=== PATIENT | female | born 1985 | race Caucasian/White ===

== ENCOUNTER 2017-05-05 15:30 | Emergency (ER) | payer SELFPAY ==
[2017-05-05 16:24] VITALS: BP 111/71
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
--- NOTE | 2017-05-05 17:25 | RAD ---
INDICATION: Left shoulder injury. TECHNIQUE: 4 views of the left shoulder were obtained. FINDINGS: The bones are in normal alignment. No fracture is seen. Joint spaces appear maintained. IMPRESSION: NO EVIDENCE OF FRACTURE.
== END 2017-05-05 17:47 | disposition home or self-care (01) ==
LOC: UCCORT 15:30
DX: S13.4XXA Sprain of ligaments of cervical spine, initial encounter (principal); S40.012A Contusion of left shoulder, initial encounter; V43.52XA Car driver injured in collision with other type car in traffic accident, initial encounter; Y93.89 Activity, other specified; Y92.410 Unspecified street and highway as the place of occurrence of the external cause; M25.512 Pain in left shoulder; R51 Headache; Z88.2 Allergy status to sulfonamides
CPT/HCPCS: 99212; G0463

== ENCOUNTER 2018-09-12 07:55 | Emergency (ER) | payer OTHER ==
[2018-09-12 08:28] VITALS: BP 116/84
--- NOTE | 2018-09-12 09:54 | UC ---
Ear Complaint HPI - HPI Summary HPI Summary: 33 year old female with ear concern. Intermittent pain and "clogged" feeling in left ear for over a year. Pain steadily worsening over the last three weeks. "Popping" sensation worsening since applying essential oils yesterday. Difficulty sleeping last night due to pain. Patient swims a couple times a week. [ End ] - History of Current Complaint Chief Complaint: UCEar Stated Complaint: EAR PAIN Time Seen by Provider: 09/12/18 09:44 Hx Obtained From: Patient Hx Last Menstrual Period: Mirena IUD Onset/Duration: Gradual Onset Pain Intensity: 1 - Allergies/Home Medications Allergies/Adverse Reactions: Allergies Allergy/AdvReac Type Severity Reaction Status Date / Time Sulfa (Sulfonamide Allergy Hives Verified 09/12/18 08:20 Antibiotics) soy AdvReac Oral Verified 09/12/18 08:20 Sores, GI Upset, Rash wheat AdvReac Oral Verified 09/12/18 08:20 Sores, GI Upset, Rash Home Medications: Home Medications Labetalol TAB* [Trandate TAB*] 100 mg PO BID 09/12/18 [History Confirmed ] PMH/Surg Hx/FS Hx/Imm Hx Previously Healthy: Yes Other History Of: Negative For: HIV, Hepatitis B, Hepatitis C, Anticoagulant Therapy - Surgical History Surgical History: Yes Surgery Procedure, Year, and Place: adenoids, breast reduction - Family History Known Family History: Positive: Hypertension, Other - Polycystic kidney disease- -mother. Negative: Cardiac Disease, Diabetes - Social History Occupation: Employed Full-time Lives: With Family Alcohol Use: Occasionally Substance Use Type: None Smoking Status (MU): Never Smoked Tobacco Review of Systems ENT: Ear Ache Is Patient Immunocompromised?: No All Other Systems Reviewed And Are Negative: Yes Physical Exam Triage Information Reviewed: Yes Appearance: Well-Appearing, No Pain Distress, Well-Nourished Vital Signs: Initial Vital Signs Temp 98.1 F 09/12/18 08:18 Pulse 80 09/12/18 08:18 Resp 16 09/12/18 08:18 BP 116/84 09/12/18 08:18 Pulse Ox 98 09/12/18 08:18 Vital Signs Reviewed: Yes Eye Exam: Normal ENT Exam: Normal ENT: Positive: Hearing grossly normal, Nasal congestion, Nasal drainage, TM bulging, TM dull, TM red - left Dental Exam: Normal Neck exam: Normal Neck: Positive: 1 Respiratory Exam: Normal Cardiovascular Exam: Normal Abdominal Exam: Normal Musculoskeletal Exam: Normal Neurological Exam: Normal Psychological Exam: Normal Skin Exam: Normal Ear Complaint Course/Dx - Differential Dx/Diagnosis Differential Diagnosis/HQI/PQRI: Cerumen Impaction, Otitis Externa, Otitis Media , Perforated TM, URI Provider Diagnoses: Left AOM Discharge - Sign-Out/Discharge Documenting (check all that apply): Patient Departure All imaging exams completed and their final reports reviewed: No Studies - Discharge Plan Condition: Good Disposition: HOME Prescriptions: Amoxicillin PO (*) [Amoxicillin 875 MG (*)] 875 mg PO BID #20 tab Patient Education Materials: Ear Infection (ED) Referrals: Temi Bloom MD [Primary Care Provider] - 4 Days Additional Instructions: As we discussed please consider following up with an ear nose and throat physician if your symptoms persist. Please continue with daily Flonase and consider a daily antihistamine similar to Claritin. - Billing Disposition and Condition Condition: GOOD Disposition: Home
== END 2018-09-12 10:15 | disposition home or self-care (01) ==
LOC: UCCORT 07:55
DX: H66.92 Otitis media, unspecified, left ear (principal); Z88.1 Allergy status to other antibiotic agents
CPT/HCPCS: 99212; G0463

== ENCOUNTER 2019-10-04 08:03 | Inpatient (IN) | payer OTHER ==
[2019-10-04] MEDS ORDERED: Misoprostol TAB* 100 MCG ONE (09:27)
[2019-10-04] MEDS ORDERED: Buffered Lidocaine 1% SYRIN* 1 ML/SYRINGE INTRADERM ONE (09:28)
[2019-10-04] MEDS ORDERED: Lactated Ringers 1000 ML Bag* 1,000 ML IV ONE (09:28)
[2019-10-04] MEDS ORDERED: Misoprostol TAB* 100 MCG VAGINAL ONE (09:28)
--- NOTE | 2019-10-04 09:45 | HP ---
General Information - Reason for Visit Pt presents at 39 wks for labor induction due to complicated by CHTN and AMA. Pt also with morbid obesity. She has been on Labetalol 300mg BID and low dose ASA for the entire . Pt also with polycystic kidney disease, but normal labs. - General Information Maternal Age: 34 Grav: 1 Para: 0 SAB: 0 IEA: 0 Estimated Due Date: 10/10/19 Determined By: LMP Gestational Age in Weeks/Days: 39+! Maternal Blood Type and Rh: O Positive - Results this Serology/RPR Result: Non-Reactive Rubella Result: Immune HBsAg Result: Negative HIV Result: Negative GBS Culture Result: Positive Past Medical History Delivery History: See Records Pertinent Past Medical History: See Records Past Medical History Comment: Polycystic kidney disease, chronic HTN, morbid obesity, depression/anxiety Pertinent Past Surgical History: See Records Past Surgical History Comment: breast reduction - Antepartal Records Antepartal Records: Reviewed, Complicated by: - see above Review of Systems Constitutional: Comfortable CV Complaint: No Respiratory: Shortness of Breath: No Gastrointestinal: No Nausea/Vomiting, Normal Bowel Movement Genitourinary: No Dysuria, No Bleeding, No Leaking Fluid Musculoskeletal: No Complaint Neurological: No Headache Movement: Normal Exam Allergies/Adverse Reactions: Allergies Sulfa (Sulfonamide Antibiotics) Allergy (Intermediate, Verified 10/04/19 08:45) Hives soy Adverse Reaction (Mild, Verified 10/04/19 08:45) Oral Sores, GI Upset, Rash wheat Adverse Reaction (Mild, Verified 10/04/19 08:45) GI Upset 130/71, HR 91, RR 20, T 97.7 - Measurements Height: 5 ft 1 in Weight: 250 lb Body Mass Index (BMI): 47.2 Pre- Weight: 234 lb - Exam Breast: Breast Exam Deferred Heart: Normal Rhythm/Heart Sounds HEENT: No Significant Findings Lungs: Clear Bilaterally Rectal: Rectal Exam Deferred - Abdominal Exam Abdomen Exam: Non-Tender - Ultrasound/Biophysical Profile Ultrasound Status: Not Done Targeted Exam Findings Cervical Exam: 1cm Effacement: <50% Station: -2 Presenting Part: Vertex Membrane Status: Intact Bleeding/Discharge: None EFM Findings - External Monitor Findings Baseline Heart Rate: 130 External Monitor Findings: Accelerations Present, No Pattern of Variable or Late Decelerations, Variability Moderate, Baseline Stable Contractions: None Assessment/Plan - Assessment 39+1 wks with CHTN, PKD, morbid obesity, here for labor induction today. Very reassuring testing. Discussed labor induction at length, and considering unfavorable cervix, will start with vaginal misoprostol. Pt understands induction may take at least 1-2 days. - Obstetrical Risk Factors Obstetrical Risk Factors: GBS Positive, Obesity, Chronic Hypertension - Plan Plan: Cervical Ripening - misprostol 25mcg placed at about 0930 - Date/Time of Admission Date of Admission: 10/04/19 Time of Admission: 09:00
[2019-10-04 14:57] LABS: Urine Benzodiazepine Screen None Detected (None Detect); Urine Opiates Screen None Detected (None Detect)
[2019-10-04 16:15] LABS: ABS Eosinophils 0.1 10^3/ul (0-0.6); ABS Lymphocytes 1.6 10^3/ul (1.0-4.8); ABS Monocytes 0.6 10^3/ul (0-0.8); ABS Neutrophils 6.8 10^3/ul (1.5-7.7); Eosinophil % 0.6 %; Hematocrit 38 % (35-47); Hemoglobin 13.3 g/dL (12.0-16.0); Lymphocyte % 17.2 %; Mean Corpuscular HGB Conc 35 g/dL (31-36); Mean Corpuscular Hemoglobin 29 pg (27-31); Mean Corpuscular Volume 84 fL (80-97); Mean Platelet Volume 9.2 fL (7.4-10.4); Platelet Count 175 10^3/uL (150-450); Red Blood Count 4.51 10^6 /uL (3.70-4.87); Red Cell Distribution Width 13 % (10-15)
[2019-10-04 16:27] LABS: Albumin 3.7 g/dL (3.2-5.2); Calcium 9.7 mg/dL (8.6-10.3); Potassium 4.1 mmol/L (3.5-5.0); Total Bilirubin 0.4 mg/dL (0.2-1.0)
[2019-10-04 16:33] LABS: Albumin/Globulin Ratio 1.5 (1-3); BUN/Creatinine Ratio 15.6 (8-20); EGFR African American 103.2 (>60); EGFR Non-African American 85.3 (>60); Globulin 2.4 g/dL (2-4); Total Protein 6.1 g/dL (6.4-8.9); Uric Acid 4.8 mg/dL (2.3-6.6)
[2019-10-04] MEDS ORDERED: Nalbuphine* 10 MG/ML 1 ML VIAL IV PRN (17:36)
[2019-10-04] MEDS ORDERED: Promethazine INJ(RESTRICTED)* 25 MG/ML 1 ML VIAL IV PRN (17:36)
[2019-10-04] MEDS ORDERED: Penicillin G Potassium IV* 5,000,000 UNITS in NS 0.9% 100 ML* 100 ML IVPB ONE (17:36)
[2019-10-04] MEDS: Labetalol TAB* 300 MG PO SCH (20:29)
[2019-10-05] MEDS: Lactated Ringers 1000 ML Bag* 1,000 ML IV SCH ×2 (08:25→20:40)
[2019-10-05] MEDS: Labetalol TAB* 300 MG PO SCH ×2 (08:26→21:00)
[2019-10-05] MEDS: Oxytocin in LR* 20 UNITS/1,000 ML BAG IVPB SCH (08:55)
--- NOTE | 2019-10-05 09:39 | PN ---
Progress Note - Progress Note Date of Service: 10/05/19 Note: S: Feeling ok, "a little nervous" this morning. Slept fairly well overnight. Had small breakfast. Not really feeling mild ctx. O: VE deferred Pit @ 4 UCs q 5-7 FHT 135, +accels, no decels, mod obdulia VSS: T 97.4, BP 119/85 PCN prophylaxis initiated A: IUP @ 39+2 weeks gestation for induction of labor for CHTN, PKD No evidence acidemia GBS + Not in labor P: Continue pitocin titration. Discussed use of nitrous oxide for labor pain management if desired. Patient hoping to avoid epidural. May consider hydrotherapy as well. Encouraged upright positions and moving. Anticipate SVB.
[2019-10-05] MEDS: Penicillin G Potassium IV* 2,500,000 UNITS in NS 0.9% 100 ML* 100 ML IVPB SCH ×3 (12:34→20:44)
[2019-10-05] MEDS ORDERED: Famotidine IV* 10 MG/ML 2 ML (20 mg) IV SLOW PU ONE (15:55)
--- NOTE | 2019-10-05 18:24 | PN ---
Progress Note - Progress Note Date of Service: 10/05/19 Note: S: In good spirits. Feeling contractions are strengthening, feels more full belly and lower down, less like cramps. Coping well. O: VSS Pitocin @14mu 4cm/vtx/80% Ctx 3-5min FHTs 135 baseline A: , 39 4-7 weeks IOL secondary to CHTN, PKD Early labor AROM, fluid clear P: Encourage use of tub, position changes Continue to titrate pitocin Continue to monitor
[2019-10-05] MEDS ORDERED: OBEPIDURAL* 250 ML EPIDURAL ONE (19:34)
[2019-10-06] MEDS: Penicillin G Potassium IV* 2,500,000 UNITS in NS 0.9% 100 ML* 100 ML IVPB SCH ×4 (00:30→12:35)
[2019-10-06] MEDS ORDERED: Lidocaine 2% w/ EPI 1:200,000* 20 ML SDV VIAL ONE (02:39)
--- NOTE | 2019-10-06 03:00 | PN ---
Progress Note - Progress Note Date of Service: 10/06/19 Note: S: Patient started gradually feeling more pressure in low and front pelvis, increased to pain with each contraction. Has tried individual bolus button without relief. O: VE by RN @ 0138 6-7cm, exam 8cm/95%/0 Pit @ 14 UCs q 2-3 FHT 130, BPs 150s/80s evening labetolol dose held A: IUP @ 39+3 for induction for HTN epidural catheter pulled out with position changes P: Dr Reagan paged to unit and will replace with repeat epidural procedure. Pit down to 6.
[2019-10-06] MEDS ORDERED: OBEPIDURAL* 250 ML EPIDURAL ONE (03:27)
[2019-10-06] MEDS ORDERED: Sodium Citrate/Citric Acid* 15 ML UDC PO PRN (04:05)
[2019-10-06] MEDS ORDERED: Famotidine TAB* 20 MG PO PRN (04:05)
[2019-10-06] MEDS ORDERED: Lactated Ringers 1000 ML Bag* 500 ML IV PRN ×2 (04:05)
[2019-10-06] MEDS ORDERED: Lactated Ringers 1000 ML Bag* 1,000 ML IV ONE (04:05)
[2019-10-06] MEDS ORDERED: Phenylephrine 40 MCG/ML SYRINGE IV PUSH PRN ×2 (04:05)
[2019-10-06] MEDS: Lactated Ringers 1000 ML Bag* 1,000 ML IV SCH ×2 (04:25→13:15)
[2019-10-06] MEDS ORDERED: Lactated Ringers 1000 ML Bag* 1,000 ML IV SCH ×3 (05:00→23:45)
[2019-10-06] MEDS ORDERED: OBEPIDURAL* 250 ML EPIDURAL SCH (05:00)
[2019-10-06] MEDS: Labetalol TAB* 300 MG PO SCH ×2 (08:30→21:05)
[2019-10-06] MEDS: Oxytocin in LR* 20 UNITS/1,000 ML BAG IVPB SCH (10:22)
[2019-10-06] MEDS: Ketorolac INJ* 30 MG/ML 1 ML VIAL IV SCH ×2 (13:00→22:54)
[2019-10-06] MEDS ORDERED: ceFOXitin 2 GM IVPREMIX* 2 GM/50 ML BAG ONE (13:55)
[2019-10-06] MEDS ORDERED: ceFOXitin 2 GM IVPREMIX* 2 GM/50 ML BAG IVPB ONE (13:55)
[2019-10-06] MEDS ORDERED: Morphine PF AMP (0.5MG/ML)* 5 MG/10 ML AMP ONE (14:01)
[2019-10-06] MEDS ORDERED: fentaNYL* 50 MCG/ML 2 ML VIAL (100 MCG VIAL) ONE (14:47)
[2019-10-06] MEDS ORDERED: KETAMINE HCL* 50 MG/ML 10 ML VIAL ONE (14:47)
[2019-10-06] MEDS ORDERED: Dexamethasone IV* 4 MG/ML 1 ML (4 MG) ONE (14:52)
[2019-10-06] MEDS ORDERED: Ondansetron INJ* 2 MG/ML VIAL ONE (14:52)
[2019-10-06] MEDS ORDERED: oxyCODONE TAB* 5 MG TAB PO PRN ×2 (15:06→15:16)
[2019-10-06] MEDS ORDERED: PROCHLORPERAZINE INJ 5 MG/ML 2 ML VIAL IV PRN ×2 (15:06→15:16)
[2019-10-06] MEDS ORDERED: Acetaminophen IV 1GM/100ML * 1,000 MG/100 ML VIAL IVPB ONE (15:06)
[2019-10-06] MEDS ORDERED: DiMENhydriNATE IV* 50 MG/ML VIAL IV PUSH PRN (15:06)
[2019-10-06] MEDS ORDERED: Scopolamine 1.5 mg* PATCH TRANSDERM PRN ×2 (15:06→15:16)
[2019-10-06] MEDS ORDERED: fentaNYL* 50 MCG/ML 2 ML VIAL (100 MCG VIAL) IV PRN (15:06)
[2019-10-06] MEDS ORDERED: Ketorolac INJ* 30 MG/ML 1 ML VIAL IV PRN (15:06)
[2019-10-06] MEDS ORDERED: Naloxone* 0.4 MG/ML 1 ML VIAL IV PRN ×2 (15:06→15:16)
[2019-10-06] MEDS ORDERED: Nalbuphine* 10 MG/ML 1 ML VIAL IV PRN (15:16)
[2019-10-06] MEDS ORDERED: Ondansetron INJ* 2 MG/ML VIAL IV PRN (15:16)
[2019-10-06] MEDS ORDERED: Acetaminophen TAB* 325 MG PO SCH (16:00)
--- NOTE | 2019-10-06 22:31 | OP ---
DATE OF SURGERY: 10/06/19 - ROOM #115 DATE OF : 83 SURGEON: Eli Whitehead MD. BALANCE WHEEL MOTION INSPECTOR: Arielle Lopez CNM. ANESTHESIOLOGIST: Dr. Mcmahon. ANESTHESIA: Spinal. CEPHALOMETRIC TRACER: Leonid Collazo MD. PRE-OP DIAGNOSES: Maternal exhaustion, intrauterine , 39 and 3/7 weeks , chronic hypertension. POST-OP DIAGNOSES: Maternal exhaustion, intrauterine , 39 and 3/7 weeks, chronic hypertension. OPERATIVE PROCEDURE: Primary low-transverse section. ESTIMATED BLOOD LOSS: 600 cc. URINE OUTPUT: 100 cc of concentrated yellow urine. FLUIDS: 2700 cc of crystalloid. FINDINGS: Revealed a vertex male with Apgars 9 at 1 minute and 9 at 5 minutes, weight was 7 pounds 7 ounces. Placenta was manually extracted, 3- vessel cord intact. No meconium. Nuchal cord x2. Normal appearing tubes and ovaries bilaterally. COMPLICATIONS: None apparent. DISPOSITION: Stable, to recovery room. DESCRIPTION OF PROCEDURE: The patient was placed in dorsal lithotomy position. The abdomen was prepped and draped in a sterile standard fashion. The patient was identified with universal protocol for correct procedure, position, and patient. Anesthesia was then tested to appropriate level. Incision was made 2 fingerbreadths above the pubic symphysis. This was carried down through the fascia. Fascia was scored in the midline, extended laterally and superiorly using Oliva scissors. The fascia was superiorly and inferiorly with blunt and sharp dissection. The peritoneum was then entered bluntly and the incision was extended bluntly. Bladder blade was inserted. Lower uterine segment was identified, tented up with an Allis. Incision was made. This was carried down through membrane. Amniotomy was created for clear fluid. The incision was extended laterally and superiorly using bandage scissors. The infant was delivered vertex, JULIUS, anterior then posterior shoulder delivered. After reduction of the nuchal cord x2, the baby was vigorous and was allowed to stay on the operative field for a minute and then the cord was clamped and cut, and the was handed off to awaiting brush machine setter. Appropriate cord blood was then obtained. The placenta was then manually extracted, noted to be intact. The uterine cavity was explored and noted to be free of any membranes or placental tissue. The uterus was exteriorized, wrapped in warm, moist laparotomy sponge, and the incision itself was reapproximated in 2 layers. First layer running locked, second layer running imbricated. Uterus was returned intraabdominally. Gutters were lavaged. Hemostasis was assured at the hysterotomy site. The peritoneum was then reapproximated using 3-0 Vicryl in a running fashion. Subfascial area was visualized. Hemostasis assured and the fascia itself was reapproximated using 0 Vicryl x2 in a running fashion. Camper 's fascia was lavaged. Hemostasis assured with Bovie coagulation and Camper's fascia was reapproximated using 3-0 Vicryl in an interrupted fashion. The skin was then reapproximated using 4-0 Monocryl in a subcuticular fashion. Mastisol and Steris were applied. All sponge, needle, instrument, blade counts were correct throughout the case. The patient tolerated the procedure well, and went to the recovery room in stable condition. [id number]/[facility] #: [id number] BARBARA
[2019-10-06] MEDS ORDERED: Oxytocin in LR* 20 UNITS/1,000 ML BAG IVPB SCH (23:45)
[2019-10-06] MEDS ORDERED: Dibucaine 1% 28.35 GM TUBE PR PRN (23:55)
[2019-10-06] MEDS ORDERED: Witch Hazel PAD* JAR TOPICAL PRN (23:55)
[2019-10-06] MEDS ORDERED: Glycerin ADULT SUPP PR PRN (23:55)
[2019-10-07] MEDS: Acetaminophen TAB* 325 MG PO SCH ×2 (00:18→08:08)
[2019-10-07 05:39] LABS: ABS Lymphocytes 1.1 10^3/ul (1.0-4.8); ABS Monocytes 0.9 10^3/ul (0-0.8); ABS Neutrophils 12.8 10^3/ul (1.5-7.7); Hematocrit 29 % (35-47); Hemoglobin 9.6 g/dL (12.0-16.0); Lymphocyte % 7.2 %; Mean Corpuscular HGB Conc 34 g/dL (31-36); Mean Corpuscular Hemoglobin 29 pg (27-31); Mean Corpuscular Volume 86 fL (80-97); Mean Platelet Volume 9.8 fL (7.4-10.4); Platelet Count 163 10^3/uL (150-450); Red Blood Count 3.34 10^6 /uL (3.70-4.87); Red Cell Distribution Width 14 % (10-15); White Blood Count 14.9 10^3/uL (3.5-10.8)
[2019-10-07] MEDS ORDERED: oxyCODONE/Acetamin 5/325 MG* TAB PO PRN ×2 (06:20)
[2019-10-07] MEDS: Ketorolac INJ* 30 MG/ML 1 ML VIAL IV SCH ×3 (07:03→10:38)
[2019-10-07] MEDS: Acetaminophen TAB* 325 MG PO PRN ×4 (07:42→21:17)
[2019-10-07] MEDS: Ferrous Gluconate TAB* 324 MG TAB PO SCH ×2 (07:42→21:16)
[2019-10-07] MEDS: Docusate CAP* 100 MG PO SCH ×3 (07:42→21:16)
[2019-10-07] MEDS: Simethicone TAB* 80 MG TAB.CHEW PO SCH ×4 (07:42→21:17)
[2019-10-07] MEDS: Labetalol TAB* 300 MG PO SCH ×2 (09:20→21:17)
--- NOTE | 2019-10-07 10:31 | PN ---
Progress Note - Progress Note Date of Service: 10/07/19 Note: S: Pt is a 34 y/o s/p pLTCS at term 2/2 maternal exhaustion. Doing well post . Alvarez out, awaiting spontaneous void. Tolerating regular diet w/o n /v. Pain appropriately controlled. O: AVSS, afebrile, hemodynamically stable Gen: nad, aaox3 CV: RRR Pulm: non-labored respirations Abd: soft, nd, nttp, fundus firm below the U Ext: warm, nttp, trace edema H/H: 9.05/29 A/P: 34 y/o s/p pLTCS at term 2/2 maternal exhaustion, doing well: - Anemia - continue PO Fe - Pain appropriately controlled - continue PO pain regimen - CHTN: bp's have been normotensive, Labetalol held secondary to Diastolic's < 50. Will continue to hold. Resume if any elevated BP's. - Alvarez out - awaiting spontaneous void - RH+/RI - Continue routine post care DO SHANDRA Milligan
[2019-10-07] MEDS ORDERED: Ibuprofen TAB* 600 MG ONE (13:11)
[2019-10-07] MEDS: Ibuprofen TAB* 600 MG PO PRN ×2 (13:19→21:19)
[2019-10-08] MEDS: Ibuprofen TAB* 600 MG PO PRN ×3 (08:20→20:46)
[2019-10-08] MEDS: Docusate CAP* 100 MG PO SCH ×3 (08:20→20:46)
[2019-10-08] MEDS: Ferrous Gluconate TAB* 324 MG TAB PO SCH ×2 (08:21→20:45)
[2019-10-08] MEDS: Acetaminophen TAB* 325 MG PO PRN ×4 (08:21→20:47)
[2019-10-08] MEDS: Simethicone TAB* 80 MG TAB.CHEW PO SCH ×4 (08:21→20:47)
[2019-10-08] MEDS: Penicillin G Potassium IV* 2,500,000 UNITS in NS 0.9% 100 ML* 100 ML IVPB SCH (08:34)
[2019-10-08] MEDS: Labetalol TAB* 300 MG PO SCH (11:25)
[2019-10-08] MEDS: Labetalol TAB* 200 MG PO SCH (20:44)
[2019-10-09] MEDS: Acetaminophen TAB* 325 MG PO PRN ×2 (02:01→07:09)
[2019-10-09] MEDS: Ibuprofen TAB* 600 MG PO PRN ×2 (02:51→09:40)
[2019-10-09 07:57] VITALS: BP 129/73
[2019-10-09] MEDS: Docusate CAP* 100 MG PO SCH (09:39)
[2019-10-09] MEDS: Ferrous Gluconate TAB* 324 MG TAB PO SCH (09:39)
[2019-10-09] MEDS: Simethicone TAB* 80 MG TAB.CHEW PO SCH (09:40)
[2019-10-09] MEDS: Labetalol TAB* 200 MG PO SCH (10:13)
[2019-10-09] MEDS ORDERED: Scopolamine PATCH Remove* 1 NOTE MISC PATCH OFF ONE (15:12)
[2019-10-09] MEDS ORDERED: Scopolamine PATCH Remove* 1 NOTE MISC PATCH OFF PRN (15:17)
== END 2019-10-09 12:58 | disposition home or self-care (01) | DRG 540 ==
LOC: MCHOBOUT 08:03 → MCHOB 09:04
PROVIDERS: ADMIT Obstetrics & Gynecology; ATTEND Obstetrics & Gynecology
PROC: 10907ZC Drainage of Amniotic Fluid, Therapeutic from Products of Conception, Via Natural or Artificial Opening (ICD-10-PCS; 2019-10-06)
PROC: 10D00Z1 Extraction of Products of Conception, Low, Open Approach (ICD-10-PCS; principal; 2019-10-06 14:07)
DX: O10.02 Pre-existing essential hypertension complicating childbirth (principal); Q61.3 Polycystic kidney, unspecified; O75.81 Maternal exhaustion complicating labor and delivery; O99.214 Obesity complicating childbirth; E66.01 Morbid (severe) obesity due to excess calories; O99.344 Other mental disorders complicating childbirth; F41.8 Other specified anxiety disorders; O99.89 Other specified diseases and conditions complicating pregnancy, childbirth and the puerperium; O99.824 Streptococcus B carrier state complicating childbirth; O69.81X0 Labor and delivery complicated by cord around neck, without compression, not applicable or unspecified; O90.81 Anemia of the puerperium; D64.9 Anemia, unspecified; Z3A.39 39 weeks gestation of pregnancy; Z37.0 Single live birth
CPT/HCPCS: 36415; 80053; 80307; 84550; 85025; 86850; 86900; 86901; A9270-GY; J0694; J1100; J1885; J2300; J2405; J2540; J2550; J3010; S0191

== ENCOUNTER → 2019-12-23 09:39 | Day surgery (SDC) | payer OTHER ==
[~2019-12-23 09:39] MED LIST: Buffered Lidocaine 1% SYRIN* 1 ML/SYRINGE INTRADERM ONE; DOXYcycline IV 200 MG in NS 250 mL *Pre-Op OBGYN IVPB ONE; Dexamethasone IV* 4 MG/ML 1 ML (4 MG) ONE; DiMENhydriNATE IV* 50 MG/ML VIAL IV PUSH PRN; HYDROcodone/ACETAMIN 5-325 MG* 1 TAB PO PRN; HYDROmorphone INJ1* 1 MG/ML SYRINGE IV PRN; Ketorolac INJ* 30 MG/ML 1 ML VIAL ONE; Lactated Ringers 1000 ML Bag* 1,000 ML IV SCH; Lidocaine 2% PF * 5 ML VIAL ONE; Misoprostol TAB* 200 MCG ONE; Naloxone* 0.4 MG/ML 1 ML VIAL IV PRN; Ondansetron INJ* 2 MG/ML VIAL ONE; Propofol* 10 MG/ML 20 ML BTL ONE; Succinylcholine* 20 MG/ML 10 ML VIAL ONE; fentaNYL* 50 MCG/ML 2 ML VIAL (100 MCG VIAL) ONE
[2019-12-23 10:52] LABS: ABS Eosinophils 0.1 10^3/ul (0-0.6); ABS Lymphocytes 1.6 10^3/ul (1.0-4.8); ABS Monocytes 0.4 10^3/ul (0-0.8); ABS Neutrophils 3.3 10^3/ul (1.5-7.7); Eosinophil % 0.9 %; Hematocrit 40 % (35-47); Lymphocyte % 30.2 %; Mean Corpuscular HGB Conc 35 g/dL (31-36); Mean Corpuscular Hemoglobin 29 pg (27-31); Mean Corpuscular Volume 84 fL (80-97); Mean Platelet Volume 8.9 fL (7.4-10.4); Platelet Count 206 10^3/uL (150-450); Red Blood Count 4.76 10^6 /uL (3.70-4.87); Red Cell Distribution Width 13 % (10-15); White Blood Count 5.4 10^3/uL (3.5-10.8)
[2019-12-23 14:53] VITALS: BP 143/79
--- NOTE | 2019-12-24 02:22 | OP ---
DATE OF OPERATION: 12/23/19 - [facility] DATE OF : 83 SURGEON: Seth Nguyen DO. ANESTHESIA: General endotracheal. PRE-OP DIAGNOSIS: Retained products of conception. POST-OP DIAGNOSIS: Retained products of conception. OPERATIVE PROCEDURE: Hysteroscopy and MyoSure evacuation of retained products IV FLUIDS: 1 L. ESTIMATED BLOOD LOSS: 10 mL. SPECIMEN: Retained products of conception. COMPLICATIONS: None. FINDINGS: Exam under anesthesia revealed a normal-sized anteverted uterus with normal contour and normal bilateral adnexa. Hysteroscopy exhibited products consistent in appearance with retained products of conception. Uterine cavity and bilateral tubal ostia otherwise appear to be normal. This 34-year-old patient presented to the office with continued vaginal bleeding approximately 2 months status post . Ultrasound was performed and concerning for bright echogenic findings consistent with retained products of conception. Risks versus benefits and alternatives of the procedure were discussed with the patient. She understood the risks of the procedure include but are not limited to uterine perforation, fluid overload, and rare risk of . She wished to proceed and signed the consent. DESCRIPTION OF PROCEDURE: The patient was taken to the OR where general anesthesia was administered without difficulty. She was placed in the dorsal lithotomy position with Yellowfin stirrups. An exam under anesthesia revealed a normal anteverted uterus. The patient was then prepared and draped in the normal sterile fashion. A weighted speculum was inserted in the posterior aspect of the vagina. A single tooth tenaculum was used to grasp the anterior limb of the cervix. The cervical os was dilated to accommodate the 6.25 mm MyoSure hysteroscope using Hanks dilators. The MyoSure hysteroscope was introduced under direct visualization and the uterus was distended with normal saline. The aforementioned findings were noted. The MyoSure XL device was inserted through the hysteroscope and the suspected retained products of conception were successfully excised. It was noted that the specimen appeared to be loosely attached to the patient's left lateral wall of the uterus. The products were successfully resected and the hysteroscope was withdrawn. The tenaculum was removed from the cervix and good hemostasis was noted at the puncture sites. The patient tolerated the procedure well. The instrument and sponge counts were correct x2. The patient was awakened from general anesthesia and taken to the recovery room in stable condition. Aron Nguyen DO OBN [id number]/[facility] #: [id number] BARBARA
== END | disposition home or self-care (01) ==
LOC: OR 09:39
PROVIDERS: ATTEND Obstetrics & Gynecology
DX: O72.2 Delayed and secondary postpartum hemorrhage (principal); I10 Essential (primary) hypertension; E28.2 Polycystic ovarian syndrome; F41.8 Other specified anxiety disorders; Q61.3 Polycystic kidney, unspecified
CPT/HCPCS: 36415; 81025; 85025; 86850; 86900; 86901; 88305; A9270-GY; J0330; J1100; J1885; J2405; J2704; J3010